=== PATIENT | female | born 1945 | race Caucasian/White ===

== ENCOUNTER 2025-01-01 13:30 | Outpatient (RCR) | payer MEDICARE, SELFPAY ==
--- NOTE | 2024-12-16 12:47 | HP.PTEVAL_ITS ---
Patient's Visit Information Visit Information Visit Information: HUMBERTO BAUGH is a 78 year old F referred to Physical Therapy by Dr. Clarke Rico MD with a diagnosis of R hip pain. Date of Evaluation: 12/16/24 Physical Therapist: Geronimo Pace, PT, ATC Visit Plan Frequency: 2x /Week Duration: 2-4 Weeks Plan: (SKTC/DKTC, piriformis stretch both given as HEP), core strengthening ex's, Postural edu, and HEP Subjective Subjective: Pt reports she is referred here for R hip pain this date. Pt notes she began to feel a pain in the R glute region approximately one month ago. Pt reports heat and Advil usually help to take her pain away. Pt notes she had a recent x-ray which revealed no significant findings. 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 Pt reports the pain is always in her glute region, and never in her groin region. Pt reports occasional tingling and numbness in her R LE, but she has had that since having a lumbar laminectomy. Pt reports she feels better when she is walking. Pt reports occasional sleep difficulty when she rolls over at night. Pt lives with her and has to negotiate stairs on occasion. Pt has to negotiate them one step at a time. 2/10 pain while sitting here at rest, 8/10 pain at worst (descending her stairs to her garage) Pain R hip: Pain Intensity (Out of 10): 2 Pain Intensity Range: 8 Objective Objective: Neuro: B LE sensation is WNL to light touch. B ROM: B LE's are WNL when compared bilaterally. L/S ROM is WNL all planes MMT: B LE's are rated at 5/5 Special tests: Pos piriformis sign Repeated movements: REIL 10x2 increased pain, RFIS decreased pain 10x2, SKTC/DKTC eliminated pain Balance/Special Test Scores Lower Extremity Functional Score: 33 Goals Goal 1:: Decrease R hip pain x 50% to aid with standing and sitting tolerance Goal Time Frame: 2-4 Weeks Goal 2:: I with HEP Goal Time Frame: 2-4 Weeks Rehabilitation Potential Physical Therapy Diagnosis: Pt has R hip pain and difficulty with walking after sitting for a while secondary to Degenerative changes in L/S Rehabilitation Potential: Good Anticipated Interventions Patient/Client Instruction: Educate patient on: Condition and Plan of Care For the Purpose of:: To improve self management Therapeutic Exercise to Include: Strength training, Endurance training, Body mechanics, Postural training, Flexibilty training and Dynamic Lumbar Stabilization For the Purpose of:: To decrease pain, To improve ability to perform ADL's and To improve ability of physical actions for home/community/work/leisure Text: Thank you for the opportunity to evaluate your patient. For Medicare and Medicare HMO plans, please review the plan of care and approve it. It will need to be FAXED BACK to us at [phone] for Medicare purposes. For Medicare only, by signing this I certify the plan of care. Please let me know if there are questions or concerns regarding this plan of care. Physician Signature: Date:
--- NOTE | 2025-03-30 15:59 | HP.PTDCNRP_ITS ---
Patient Information Patient Information: HUMBERTO BAUGH was seen in my office for initial evaluation on 12/16/24. The following Plan of Care was established for this patient: POC Established Initial Frequency: 2x /Week Initial Duration: 2-4 Weeks Anticipated Interventions Patient/Client Instruction: Educate patient on: Condition and Plan of Care For the Purpose of:: To improve self management Therapeutic Exercise to Include: Strength training, Endurance training, Body mechanics, Postural training, Flexibilty training and Dynamic Lumbar Stabilizat ion For the Purpose of:: To decrease pain, To improve ability to perform ADL's and To improve ability of physical actions for home/community/work/leisure Last Seen Last Seen: This patient was last seen in our office . Pertinent comments regarding their Physical therapy will appear below: Pt has not returned to [facility] is greater than 30 days and is discharged at this time. At this point I will be discontinuing this patient from physical therapy. I would be happy to see this patient again in the future if found appropriate by the physician. Thank you! Geronimo Pace, PT, ATC Balance/Gait/Functional tests Balance/Special Test Scores Oswestry Low Back Score: 8 Lower Extremity Functional Score: 33
== END 2025-01-01 19:00 | disposition home or self-care (01) ==
LOC: PT 13:30
PROVIDERS: PCP Internal Medicine; Referring Provider Orthopaedic Surgery; Visit Provider Orthopaedic Surgery
DX: M25.551 Pain in right hip (principal); G57.01 Lesion of sciatic nerve, right lower limb; G89.29 Other chronic pain
CPT/HCPCS: 97110; 97161; 97530

== ENCOUNTER → 2025-01-25 | Outpatient (CLI) | payer MEDICARE, SELFPAY ==
[2025-01-25] MEDS: Lidocaine 2% (5ml sdv) 5 ML VIAL.MPF INFILT (09:45)
[2025-01-25] MEDS: Triamcinolone Acetonide 40 MG/ML Vial 80 MG INTRAARTIC (09:46)
[2025-01-25] MEDS: Bupivacaine 0.5% PF 10 ML VIAL INFILT (09:46)
--- NOTE | 2025-01-25 10:03 | RAD_ITS ---
EXAM: Fluoroscopically guided right hip injection. CLINICAL HISTORY: Right hip pain. COMPARISON: None available. TECHNIQUE: See below. FINDINGS: Informed consent was obtained. Fluoroscopic guidance, aseptic technique, local anesthesia utilized. 22 gauge spinal needle was inserted directly into the right hip joint. Intra-articular placement of the needle tip was confirmed by injection of several cc of Omnipaque 370. Subsequently, a mixture containing 2 cc of 0.5% bupivacaine and 80 mg of Kenalog was introduced and the needle removed. Patient tolerated the procedure well and was discharged home directly. RAD/Inj/Asp Dima Jt Should/Hip/Knee IMPRESSION: Uneventful fluoroscopy guided right hip injection as described. Reading Location: [place] [id number]
== END | disposition home or self-care (01) ==
LOC: RAD 09:31
PROVIDERS: PCP Internal Medicine; Referring Provider Orthopaedic Surgery; Visit Provider Orthopaedic Surgery
DX: M16.11 Unilateral primary osteoarthritis, right hip (principal)
CPT/HCPCS: 20610; 77002; Q9967